=== PATIENT | male | born 1990 | race Caucasian/White ===

== ENCOUNTER 2019-03-21 06:41 | Emergency (ER) | payer OTHER ==
[2019-03-21 06:48] VITALS: BP 139/89; RESP 20; TEMP 98.4
[2019-03-21] MEDS ORDERED: MAG HYDROX/AL HYDROX/SIMETH 30 ML, HYOSCYAMINE ELIXIR 10 ML, CIMETIDINE HCL 300 MG, LID... PO STA ×4 (07:20)
--- NOTE | 2019-03-21 07:26 | ED ---
Abdominal Pain HPI - General Chief Complaint: Abdominal Pain Stated Complaint: abd pain Time Seen by Provider: 03/21/19 07:11 Source: patient, family Mode of arrival: ambulatory Limitations: no limitations - History of Present Illness Initial Comments: 28-year-old male with history of GERD, peptic ulcer presents today for chief complaint of abdominal pain x3 days. She states the past 3 years he has taken 150 mg of Zantac daily for reflux. He he states for the past 3 days he has had increased pain in the upper abdominal region. He states he feels like his ulcer is back. Patient denies any radiation of pain. He denies any fever or chills night sweats. He states he felt his stools are loose with a normal. Patient denies any bloody or black stools. Patient denies any chest pain shortness breath or leg swelling. Patient states at times he feels slightly nauseous, denies vomiting. Patient states he does have a history of alcohol abuse. R emaining ROS (-) Upon arrival patient is sitting comfortably, no signs of distress. Patient HR elevated. - Related Data Home Medications Medication Instructions Recorded Confirmed Ranitidine HCl [Zantac] 150 mg PO BID 03/21/19 03/21/19 Previous Rx's Medication Instructions Recorded Omeprazole 20 mg PO DAILY 10 Days #10 03/21/19 tablet. Allergies Allergy/AdvReac Type Severity Reaction Status Date / Time No Known Allergies Allergy Verified 03/21/19 07:57 Review of Systems ROS Statement: Those systems with pertinent positive or pertinent negative responses have been documented in the HPI. ROS Other: All systems not noted in ROS Statement are negative. Past Medical History Past Medical History: No Reported History History of Any Multi-Drug Resistant Organisms: None Reported Past Surgical History: No Surgical Hx Reported Past Psychological History: ADD/ADHD, Anxiety, Bipolar, Depression Smoking Status: Former smoker Past Alcohol Use History: Heavy Past Drug Use History: None Reported General Exam - General Exam Comments Initial Comments: General: The patient is awake and alert, in no distress, and does not appear acutely ill. Eye: +3 mm pupils are equal, round and reactive to light, extra-ocular movements are intact. No nystagmus. There is normal conjunctiva bilaterally. No signs of icterus. Cardiovascular: There is a regular rate and rhythm. No murmur, rub or gallop is appreciated. Respiratory: Lungs are clear to auscultation, respirations are non-labored, breath sounds are equal. No wheezes, stridor, rales, or rhonchi. Gastrointestinal: Soft, non-distended, abdomen mildly tender to palpation of the epigastric region, (-) [place] sign. Abdomen without masses or organomegaly noted. There is no rigidity, rebound or guarding present. No CVA tenderness. Bowel sounds are unremarkable. Musculoskeletal: Normal ROM, no tenderness. Strength 5/5. Sensation intact. Pulses equal bilaterally 2+. Neurological: A&O x 3. CN II-XII intact, There are no obvious motor or sensory deficits. Coordination appears grossly intact. Speech is normal. Skin: Skin is warm and dry and no rashes or lesions are noted. Psychiatric: Cooperative, appropriate mood & affect, normal judgment. Limitations: no limitations Course Vital Signs 03/21/19 03/21/19 06:44 08:11 Temperature 98.4 F Pulse Rate 111 H 102 H Respiratory 20 20 Rate Blood Pressure 139/89 O2 Sat by Pulse 97 97 Oximetry Medical Decision Making - Medical Decision Making 28yo male presenting for abdominal pain, patient has history of PUD on zantac, daily drinker. Patient does not appear intoxicated on arrival. Patient has mild reproducible epigastric pain on exam. No clinical signs concerning for peritoneal irritation or acute abdomen. No true states in medical. No leukocytosis. Lipase within normal limits. Transaminases are within normal limits. No elevation of alk phos or LFTs. Patient has negative Elliott sign. Patient appears comfortable in the room. He states his history of anxiety and he refused to keep an IV or have IV fluids hung. Patient appears comfortable. He is joking and laughing in the room. At this time. Patient is stable for discharge with omeprazole and gastro-neurology follow-up for upper endoscopy I do feel patient's symptoms clinically correlate with possible peptic ulcer. Ho wever would need direct visualization for definitive diagnosis. Return parameters as well as importance of follow-up with primary care provider as well were discussed with patient who verbalized understanding. Patient is agreeable care plan and prefers discharge this time. I discussed the case attending provider Dr. John who is agreeable care pain discharge at this time. - Lab Data Result diagrams: 03/21/19 07:25 03/21/19 07:25 Lab Results 03/21/19 03/21/19 Range/Units 07:25 07:25 WBC 10.1 (3.8-10.6) k/uL RBC 5.10 (4.30-5.90) m/uL Hgb 14.9 (13.0-17.5) gm/dL Hct 44.2 (39.0-53.0) % MCV 86.5 (80.0-100.0) fL MCH 29.2 (25.0-35.0) pg MCHC 33.8 (31.0-37.0) g/dL RDW 14.3 (11.5-15.5) % Plt Count 250 (150-450) k/uL Neutrophils % 60 % Lymphocytes % 31 % Monocytes % 6 % Eosinophils % 2 % Basophils % 1 % Neutrophils # 6.0 (1.3-7.7) k/uL Lymphocytes # 3.1 (1.0-4.8) k/uL Monocytes # 0.6 (0-1.0) k/uL Eosinophils # 0.2 (0-0.7) k/uL Basophils # 0.1 (0-0.2) k/uL Sodium 141 (137-145) mmol/L Potassium 4.3 (3.5-5.1) mmol/L Chloride 101 (98-107) mmol/L Carbon Dioxide 31 H (22-30) mmol/L Anion Gap 9 mmol/L BUN 19 (9-20) mg/dL Creatinine 1.14 (0.66-1.25) mg/dL Est GFR (CKD-EPI)AfAm >90 (>60 ml/min/1.73 sqM) Est GFR (CKD-EPI)NonAf 88 (>60 ml/min/1.73 sqM) Glucose 92 (74-99) mg/dL Calcium 9.9 (8.4-10.2) mg/dL Total Bilirubin 0.5 (0.2-1.3) mg/dL AST 26 (17-59) U/L ALT 41 (21-72) U/L Alkaline Phosphatase 46 (38-126) U/L Total Protein 7.5 (6.3-8.2) g/dL Albumin 4.6 (3.5-5.0) g/dL Amylase 67 (30-110) U/L Lipase 122 (23-300) U/L Disposition Clinical Impression: Abdominal pain, History of gastroesophageal reflux (GERD) Disposition: HOME SELF-CARE Condition: Good Instructions (If sedation given, give patient instructions): Peptic Ulcer (ED), Abdominal Pain (ED) Additional Instructions: Please use medication as discussed. Please avoid alcohol use. Please follow-up with family doctor in the next 2 days, & gastroenterology as discussed. Please return to emergency room if the symptoms increase or worsen or for any other concerns, including increasing/severe abdominal pain, persistent symptoms. Prescriptions: Omeprazole 20 mg PO DAILY 10 Days #10 tablet.dr Is patient prescribed a controlled substance at d/c from ED?: No Referrals: None,Stated [Primary Care Provider] - 1-2 days Alonso Birmingham MD [STAFF PHYSICIAN] - 1-2 days Time of Disposition: 08:10
[2019-03-21 07:40] LABS: Basophils # (A) 0.1 k/uL (0-0.2); Basophils % (A) 1 %; Eosinophils # (A) 0.2 k/uL (0-0.7); Eosinophils % (A) 2 %; HCT 44.2 % (39.0-53.0); HGB 14.9 gm/dL (13.0-17.5); Lymphocytes # (A) 3.1 k/uL (1.0-4.8); Lymphocytes % (A) 31 %; MCH 29.2 pg (25.0-35.0); MCHC 33.8 g/dL (31.0-37.0); MCV 86.5 fL (80.0-100.0); Mean Platelet Volume 7.7; Monocytes # (A) 0.6 k/uL (0-1.0); Monocytes % (A) 6 %; Neutrophils % (A) 60 %; Platelet Count 250 k/uL (150-450); RDW 14.3 % (11.5-15.5); WBC 10.1 k/uL (3.8-10.6)
[2019-03-21 07:46] LABS: ALT 41 U/L (21-72); AST 26 U/L (17-59); African American GFR (CKD) >90 (>60 ml/min/1.73 sqM); Albumin 4.6 g/dL (3.5-5.0); Alkaline Phosphatase 46 U/L (38-126); Amylase 67 U/L (30-110); Anion Gap 9 mmol/L; Blood Urea Nitrogen 19 mg/dL (9-20); Calcium 9.9 mg/dL (8.4-10.2); Carbon Dioxide 31 mmol/L (22-30); Chloride 101 mmol/L (98-107); Glucose 92 mg/dL (74-99); Lipase 122 U/L (23-300); Potassium 4.3 mmol/L (3.5-5.1); Sodium 141 mmol/L (137-145); Total Bilirubin 0.5 mg/dL (0.2-1.3); Total Protein 7.5 g/dL (6.3-8.2)
[2019-03-21 08:11] VITALS: PULSE 102
== END 2019-03-21 08:17 | disposition home or self-care (01) ==
LOC: EC 06:41
DX: R10.13 Epigastric pain (principal); R11.0 Nausea; Z87.19 Personal history of other diseases of the digestive system; Z87.891 Personal history of nicotine dependence; Z79.899 Other long term (current) drug therapy; Z87.11 Personal history of peptic ulcer disease
CPT/HCPCS: 36415; 80053; 82150; 83690; 85025; 99284